=== PATIENT | male | born 1950 | race Caucasian/White ===

== ENCOUNTER 2018-04-05 18:57 | Inpatient (IN) ==
[2018-04-05] MEDS ORDERED: methylPREDNISolone SOD SUC 125 MG/2 ML VIAL IV STA (20:18)
[2018-04-05] MEDS ORDERED: SODIUM CHLORIDE 0.9% 1,000 ML IV STA (20:18)
[2018-04-05] MEDS ORDERED: ACETAMINOPHEN 500 MG TABLET PO STA (20:18)
[2018-04-05] MEDS ORDERED: ALBUTEROL/IPRATROPIUM 3 ML NEB RESP TX STA (20:18)
[2018-04-05 20:53] LABS: Basophils # 0.1 10*3/uL (0.0-0.2); Basophils % 0.2 % (0.0-0.8); Eosinophils # 0.7 10*3/uL (0.0-0.87); Hematocrit 39.4 VOL% (42.0-52.0); Hemoglobin 12.9 GM/DL (14.0-18.0); Immature Granulocytes % 11.7 %; Immature Granulocytes Absolute 2.74 #; Lymphocytes % 4.4 % (21.2-54.2); Mean Corpuscular HGB Conc 32.7 GM/DL (32-36); Mean Corpuscular Hemoglobin 31 PG (27-34); Mean Corpuscular Volume 93.4 FL (87-102); Mean Platelet Volume 10.2 FL (9.6-12.0); Monocytes # 2.2 10*3/uL (0.11-0.8); Monocytes % 9.5 % (1.7-12.7); Neutrophils # 16.6 10*3/uL (1.4-7.4); Neutrophils % 71.2 % (38.7-73.9); Platelet Count 500 T/CUMM (130-400); Red Blood Count 4.22 MC/CUMM (3.8-5.5); Red Cell Distribution Width 13.1 % (9.3-17.3); White Blood Count 23.4 T/CUMM (4-12)
[2018-04-05 21:02] LABS: PT Patient Result 10.8 SECS
[2018-04-05 21:02] LABS: Apearance,Urine Slightly Hazy (Clear); Bilirubin,Urine Negative (Negative); Blood, Urine Small mg/dL (Negative); Glucose,Urine (UA) Negative (Negative); Ketones,Urine Negative (Negative); Mucus,Urine Few /LPF (Occasional); Nitrite,Urine Negative (Negative); Protein,Urine 30 MG/DL; RBC,Urine 13 /HPF (0-4); Urine Specific Gravity 1.026 (1.001-1.035); WBC,Urine 3 /HPF (0-6)
[2018-04-05 21:03] LABS: Urine Color Dark Yellow (Yellow)
[2018-04-05 21:14] LABS: Lactic Acid 1.4 MMOL/L (0.4-2.0)
[2018-04-05 21:15] LABS: Troponin I < 0.015 NG/ML (0.00-0.045)
[2018-04-05 21:21] LABS: Albumin 1.9 G/DL (3.4-5.0); Bilirubin,Total 0.6 MG/DL (0.2-1.0); Calcium 8.7 MG/DL (8.5-10.1); Osmolality,Calculated 267.2 MOS/KG (273-304); Total Protein 7.7 G/DL (6.4-8.3)
[2018-04-05 22:04] LABS: Hepatitis A Ab IgM Quant 0.15 Index; Hepatitis A Ab IgM Result Negative (Negative); Hepatitis B Core IgM Quant 0.06 Index; Hepatitis B Core IgM Result Negative (Negative); Hepatitis B Surface Ag Quant < 0.10 Index; Hepatitis B Surface Ag Result Negative (Negative); Hepatitis C Virus Ab Quant < 0.02 Index; Hepatitis C Virus Ab Result Negative (Negative)
[2018-04-05 22:17] LABS: Sedimentation Rate-Westergren 78 MM/HR (0-20)
[2018-04-06] MEDS ORDERED: ONDANSETRON 4 MG/2 ML VIAL IV PRN (00:10)
[2018-04-06] MEDS ORDERED: MORPHINE 4 MG/1 ML VIAL IV PRN (00:47)
[2018-04-06] MEDS: SODIUM CHLORIDE 0.9% 1,000 ML IV SCH ×2 (00:57→15:17)
[2018-04-06] MEDS: DOXYCYCLINE HYCLATE 100 MG CAPSULE PO SCH ×3 (00:59→21:12)
[2018-04-06] MEDS: LATANOPROST 0.005% OPH SOLN 2.5 ML BOTTLE BOTH EYES SCH ×2 (01:00→21:12)
[2018-04-06] MEDS: ZALEPLON 5 MG CAPSULE PO PRN ×2 (01:02→21:12)
[2018-04-06 03:13] LABS: Band Neutrophils 9 % (0-10); Eosinophils 2 % (0-10); Lymphocytes 4 % (20-55); Metamyelocytes 4 %; Myelocytes 2 %; Segmented Neutrophils 69 % (50-85); Total Cells Counted 100
[2018-04-06 03:14] LABS: Platelet Estimate Increased
[2018-04-06 05:39] LABS: Basophils # 0.2 10*3/uL (0.0-0.2); Basophils % 0.9 % (0.0-0.8); Eosinophils % 0.1 % (0.00-10.9); Hematocrit 35.5 VOL% (42.0-52.0); Hemoglobin 11.5 GM/DL (14.0-18.0); Immature Granulocytes % 10.6 %; Immature Granulocytes Absolute 1.73 #; Lymphocytes # 0.6 10*3/uL (1.4-4.0); Lymphocytes % 3.4 % (21.2-54.2); Mean Corpuscular HGB Conc 32.4 GM/DL (32-36); Mean Corpuscular Hemoglobin 30 PG (27-34); Mean Corpuscular Volume 93.2 FL (87-102); Monocytes # 0.3 10*3/uL (0.11-0.8); Monocytes % 1.9 % (1.7-12.7); Neutrophils # 13.6 10*3/uL (1.4-7.4); Neutrophils % 83.1 % (38.7-73.9); Platelet Count 454 T/CUMM (130-400); Red Blood Count 3.81 MC/CUMM (3.8-5.5); Red Cell Distribution Width 13.2 % (9.3-17.3); White Blood Count 16.4 T/CUMM (4-12)
[2018-04-06 06:08] LABS: Band Neutrophils 2 % (0-10); Hypochromasia 1+; Lymphocytes 3 % (20-55); Platelet Estimate Adequate; Segmented Neutrophils 90 % (50-85); Total Cells Counted 100
[2018-04-06 06:20] LABS: Albumin 1.7 G/DL (3.4-5.0); Bilirubin,Total 0.5 MG/DL (0.2-1.0); Calcium 8.7 MG/DL (8.5-10.1); Osmolality,Calculated 277.7 MOS/KG (273-304); Potassium 4.7 MMOL/L (3.5-5.1); Total Protein 6.6 G/DL (6.4-8.3)
[2018-04-06] MEDS: LISINOPRIL 10 MG TABLET PO SCH (08:24)
[2018-04-06] MEDS: ENOXAPARIN 40 MG/0.4 ML SYRINGE SUBCUT SCH (08:24)
[2018-04-06] MEDS ORDERED: TUBERCULIN SKIN TEST 0.1 ML SYRINGE INTRADERM ONE (10:00)
[2018-04-07] MEDS: IBUPROFEN 600 MG TABLET PO PRN ×2 (01:33→15:48)
[2018-04-07 05:33] LABS: Basophils # 0.1 10*3/uL (0.0-0.2); Basophils % 0.6 % (0.0-0.8); Eosinophils # 0.5 10*3/uL (0.0-0.87); Eosinophils % 2.6 % (0.00-10.9); Hematocrit 32.3 VOL% (42.0-52.0); Hemoglobin 10.5 GM/DL (14.0-18.0); Immature Granulocytes Absolute 1.59 #; Lymphocytes # 1.5 10*3/uL (1.4-4.0); Lymphocytes % 7.7 % (21.2-54.2); Mean Corpuscular HGB Conc 32.5 GM/DL (32-36); Mean Corpuscular Hemoglobin 30 PG (27-34); Mean Corpuscular Volume 92.8 FL (87-102); Mean Platelet Volume 9.6 FL (9.6-12.0); Monocytes # 1.7 10*3/uL (0.11-0.8); Monocytes % 8.7 % (1.7-12.7); Neutrophils # 14.4 10*3/uL (1.4-7.4); Neutrophils % 72.4 % (38.7-73.9); Platelet Count 522 T/CUMM (130-400); Red Blood Count 3.48 MC/CUMM (3.8-5.5); Red Cell Distribution Width 13.2 % (9.3-17.3); White Blood Count 19.9 T/CUMM (4-12)
[2018-04-07 05:48] LABS: Albumin 1.6 G/DL (3.4-5.0); Bilirubin,Total 0.5 MG/DL (0.2-1.0); Osmolality,Calculated 276.7 MOS/KG (273-304); Potassium 4.2 MMOL/L (3.5-5.1); Total Protein 5.7 G/DL (6.4-8.3)
[2018-04-07 06:04] LABS: Band Neutrophils 1 % (0-10); Eosinophils 2 % (0-10); Hypochromasia 1+; Lymphocytes 7 % (20-55); Segmented Neutrophils 87 % (50-85); Total Cells Counted 100
[2018-04-07 06:05] LABS: Microcytosis 1+
[2018-04-07] MEDS: ENOXAPARIN 40 MG/0.4 ML SYRINGE SUBCUT SCH (08:55)
[2018-04-07] MEDS: DOXYCYCLINE HYCLATE 100 MG CAPSULE PO SCH ×2 (08:55→20:55)
[2018-04-07] MEDS: LISINOPRIL 10 MG TABLET PO SCH (08:55)
[2018-04-07] MEDS: predniSONE 20 MG TABLET PO SCH (15:54)
[2018-04-07] MEDS: SODIUM CHLORIDE 0.9% 1,000 ML IV SCH (18:17)
[2018-04-07] MEDS: ZALEPLON 5 MG CAPSULE PO PRN (20:55)
[2018-04-07] MEDS: LATANOPROST 0.005% OPH SOLN 2.5 ML BOTTLE BOTH EYES SCH (20:55)
[2018-04-08] MEDS: IBUPROFEN 600 MG TABLET PO PRN ×2 (04:08→11:58)
[2018-04-08 04:50] LABS: Basophils # 0.1 10*3/uL (0.0-0.2); Basophils % 0.6 % (0.0-0.8); Eosinophils # 0.2 10*3/uL (0.0-0.87); Eosinophils % 1.2 % (0.00-10.9); Hematocrit 33.8 VOL% (42.0-52.0); Hemoglobin 10.9 GM/DL (14.0-18.0); Immature Granulocytes % 7.6 %; Immature Granulocytes Absolute 1.57 #; Lymphocytes # 1.7 10*3/uL (1.4-4.0); Mean Corpuscular HGB Conc 32.2 GM/DL (32-36); Mean Corpuscular Hemoglobin 30 PG (27-34); Mean Corpuscular Volume 92.6 FL (87-102); Mean Platelet Volume 9.4 FL (9.6-12.0); Monocytes # 2.2 10*3/uL (0.11-0.8); Monocytes % 10.7 % (1.7-12.7); Neutrophils # 14.8 10*3/uL (1.4-7.4); Neutrophils % 71.9 % (38.7-73.9); Platelet Count 552 T/CUMM (130-400); Red Blood Count 3.65 MC/CUMM (3.8-5.5); Red Cell Distribution Width 13.1 % (9.3-17.3); White Blood Count 20.6 T/CUMM (4-12)
[2018-04-08 05:20] LABS: Albumin 1.6 G/DL (3.4-5.0); Bilirubin,Total 0.9 MG/DL (0.2-1.0); Calcium 7.9 MG/DL (8.5-10.1); Osmolality,Calculated 275.7 MOS/KG (273-304); Potassium 4.1 MMOL/L (3.5-5.1); Total Protein 5.9 G/DL (6.4-8.3)
[2018-04-08 05:23] LABS: Ferritin 420.8 ng/ml (26-388)
[2018-04-08 07:04] LABS: Eosinophils 2 % (0-10); Lymphocytes 17 % (20-55); Metamyelocytes 1 %; Platelet Estimate Increased; Segmented Neutrophils 71 % (50-85); Total Cells Counted 100
[2018-04-08 07:05] LABS: Hypochromasia Slight
[2018-04-08] MEDS: predniSONE 20 MG TABLET PO SCH (10:41)
[2018-04-08] MEDS: LISINOPRIL 10 MG TABLET PO SCH (10:41)
[2018-04-08] MEDS: ENOXAPARIN 40 MG/0.4 ML SYRINGE SUBCUT SCH (10:42)
[2018-04-08] MEDS: DOXYCYCLINE HYCLATE 100 MG CAPSULE PO SCH ×2 (10:42→21:16)
[2018-04-08] MEDS: SODIUM CHLORIDE 0.9% 1,000 ML IV SCH (10:42)
[2018-04-08] MEDS: LATANOPROST 0.005% OPH SOLN 2.5 ML BOTTLE BOTH EYES SCH (21:16)
[2018-04-09] MEDS: ZALEPLON 5 MG CAPSULE PO PRN
[2018-04-09 04:23] LABS: Basophils # 0.2 10*3/uL (0.0-0.2); Basophils % 0.7 % (0.0-0.8); Eosinophils # 0.6 10*3/uL (0.0-0.87); Eosinophils % 2.7 % (0.00-10.9); Hematocrit 32.5 VOL% (42.0-52.0); Hemoglobin 10.8 GM/DL (14.0-18.0); Immature Granulocytes % 8.8 %; Immature Granulocytes Absolute 2.05 #; Lymphocytes # 1.8 10*3/uL (1.4-4.0); Lymphocytes % 7.5 % (21.2-54.2); Mean Corpuscular HGB Conc 33.2 GM/DL (32-36); Mean Corpuscular Hemoglobin 30 PG (27-34); Mean Platelet Volume 9.5 FL (9.6-12.0); Monocytes # 2.3 10*3/uL (0.11-0.8); Neutrophils # 16.4 10*3/uL (1.4-7.4); Neutrophils % 70.3 % (38.7-73.9); Platelet Count 545 T/CUMM (130-400); Red Blood Count 3.57 MC/CUMM (3.8-5.5); Red Cell Distribution Width 13.1 % (9.3-17.3); White Blood Count 23.3 T/CUMM (4-12)
[2018-04-09 04:48] LABS: Albumin 1.6 G/DL (3.4-5.0); Bilirubin,Total 0.7 MG/DL (0.2-1.0); Calcium 8.1 MG/DL (8.5-10.1); Osmolality,Calculated 269.1 MOS/KG (273-304); Potassium 4.1 MMOL/L (3.5-5.1); Total Protein 5.8 G/DL (6.4-8.3)
[2018-04-09 05:59] LABS: Band Neutrophils 2 % (0-10); Eosinophils 3 % (0-10); Lymphocytes 4 % (20-55); Myelocytes 2 %; Segmented Neutrophils 79 % (50-85)
[2018-04-09 06:00] LABS: Total Cells Counted 100
[2018-04-09 06:01] LABS: Platelet Estimate Increased
[2018-04-09] MEDS: predniSONE 20 MG TABLET PO SCH (09:33)
[2018-04-09] MEDS: ENOXAPARIN 40 MG/0.4 ML SYRINGE SUBCUT SCH (09:33)
[2018-04-09] MEDS: IBUPROFEN 600 MG TABLET PO PRN ×3 (09:33→23:23)
[2018-04-09] MEDS: LISINOPRIL 10 MG TABLET PO SCH (09:33)
[2018-04-09] MEDS: DOXYCYCLINE HYCLATE 100 MG CAPSULE PO SCH ×2 (09:33→21:45)
[2018-04-09 13:53] LABS: Myeloperoxidase Antibody < 0.2 U
[2018-04-09 14:23] LABS: Ehrlichia Chaffeensis (HME)IgG <1:64 titer (<1:64)
[2018-04-09] MEDS: LATANOPROST 0.005% OPH SOLN 2.5 ML BOTTLE BOTH EYES SCH (21:45)
[2018-04-10 05:14] LABS: Basophils # 0.2 10*3/uL (0.0-0.2); Basophils % 0.8 % (0.0-0.8); Eosinophils # 0.8 10*3/uL (0.0-0.87); Eosinophils % 3.4 % (0.00-10.9); Hematocrit 32.8 VOL% (42.0-52.0); Hemoglobin 10.6 GM/DL (14.0-18.0); Immature Granulocytes % 10.4 %; Lymphocytes # 1.7 10*3/uL (1.4-4.0); Lymphocytes % 7.4 % (21.2-54.2); Mean Corpuscular HGB Conc 32.3 GM/DL (32-36); Mean Corpuscular Hemoglobin 30 PG (27-34); Mean Corpuscular Volume 92.4 FL (87-102); Mean Platelet Volume 9.8 FL (9.6-12.0); Monocytes % 8.9 % (1.7-12.7); Neutrophils # 15.9 10*3/uL (1.4-7.4); Neutrophils % 69.1 % (38.7-73.9); Platelet Count 560 T/CUMM (130-400); Red Blood Count 3.55 MC/CUMM (3.8-5.5); Red Cell Distribution Width 13.1 % (9.3-17.3)
[2018-04-10 05:48] LABS: Albumin 1.5 G/DL (3.4-5.0); Bilirubin,Total 0.8 MG/DL (0.2-1.0); Calcium 8.1 MG/DL (8.5-10.1); Potassium 3.9 MMOL/L (3.5-5.1)
[2018-04-10 06:26] LABS: Eosinophils 7 % (0-10); Lymphocytes 12 % (20-55); Platelet Estimate Increased; Segmented Neutrophils 75 % (50-85); Total Cells Counted 100
[2018-04-10 06:27] LABS: Atypical Lymphocytes Few
[2018-04-10] MEDS: IBUPROFEN 600 MG TABLET PO PRN ×2 (06:29→22:17)
[2018-04-10] MEDS: LISINOPRIL 10 MG TABLET PO SCH (10:34)
[2018-04-10] MEDS: predniSONE 20 MG TABLET PO SCH (10:34)
[2018-04-10] MEDS: ENOXAPARIN 40 MG/0.4 ML SYRINGE SUBCUT SCH (10:34)
[2018-04-10] MEDS: DOXYCYCLINE HYCLATE 100 MG CAPSULE PO SCH ×2 (10:34→22:17)
[2018-04-10] MEDS: LATANOPROST 0.005% OPH SOLN 2.5 ML BOTTLE BOTH EYES SCH (22:17)
[2018-04-10 23:08] LABS: Collection Time,Urine 24 HOURS; Total Protein 24 Hr Ur Result 500 MG/24HR (0-149.1); Total Volume,Urine 2500 ML (400-2000)
[2018-04-11 05:48] LABS: Basophils # 0.2 10*3/uL (0.0-0.2); Basophils % 0.7 % (0.0-0.8); Eosinophils # 0.8 10*3/uL (0.0-0.87); Eosinophils % 3.4 % (0.00-10.9); Hematocrit 33.7 VOL% (42.0-52.0); Hemoglobin 11.1 GM/DL (14.0-18.0); Immature Granulocytes % 9.2 %; Immature Granulocytes Absolute 2.06 #; Lymphocytes # 1.7 10*3/uL (1.4-4.0); Lymphocytes % 7.4 % (21.2-54.2); Mean Corpuscular HGB Conc 32.9 GM/DL (32-36); Mean Corpuscular Hemoglobin 30 PG (27-34); Mean Corpuscular Volume 91.8 FL (87-102); Mean Platelet Volume 9.8 FL (9.6-12.0); Monocytes # 2.1 10*3/uL (0.11-0.8); Monocytes % 9.5 % (1.7-12.7); Neutrophils # 15.6 10*3/uL (1.4-7.4); Neutrophils % 69.8 % (38.7-73.9); Platelet Count 555 T/CUMM (130-400); Red Blood Count 3.67 MC/CUMM (3.8-5.5); Red Cell Distribution Width 13.1 % (9.3-17.3); White Blood Count 22.3 T/CUMM (4-12)
[2018-04-11 06:12] LABS: Albumin 1.6 G/DL (3.4-5.0); Bilirubin,Total 0.9 MG/DL (0.2-1.0); Calcium 8.4 MG/DL (8.5-10.1); Potassium 4.4 MMOL/L (3.5-5.1); Total Protein 6.1 G/DL (6.4-8.3)
[2018-04-11] MEDS: ENOXAPARIN 40 MG/0.4 ML SYRINGE SUBCUT SCH (08:53)
[2018-04-11 09:35] LABS: Cryofibrinogen, P Negative (Negative)
[2018-04-11] MEDS ORDERED: PROPOFOL 200 MG/20 ML VIAL IV ONE (10:15)
[2018-04-11 10:50] LABS: Albumin (SPE) 2.3 G/DL (3.2-5.3); Albumin (SPE) Rel % 38.1 %; Alpha 1 (SPE) 0.4 G/DL (0.1-0.4); Alpha 1 (SPE) Rel % 6.8 %; Alpha 2 (SPE) Rel % 16.6 %; Beta (SPE) 0.8 G/DL (0.5-1.1); Beta (SPE) Rel % 13.8 %; Gamma (SPE) 1.5 G/DL (0.7-1.7); Gamma (SPE) Rel % 24.7 %
[2018-04-11] MEDS: LISINOPRIL 10 MG TABLET PO SCH (10:54)
[2018-04-11 10:56] LABS: 24 Hr Protein (Bench) 500 MG/24HR (0-149.1)
[2018-04-11] MEDS: DOXYCYCLINE HYCLATE 100 MG CAPSULE PO SCH ×2 (11:17→21:22)
[2018-04-11] MEDS: predniSONE 20 MG TABLET PO SCH (11:17)
[2018-04-11] MEDS: IBUPROFEN 600 MG TABLET PO PRN (11:17)
[2018-04-11 11:25] LABS: Band Neutrophils 2 % (0-10); Eosinophils 4 % (0-10); Lymphocytes 7 % (20-55); Polychromasia Slight; Segmented Neutrophils 81 % (50-85); Total Cells Counted 100
[2018-04-11 11:26] LABS: Hypochromasia Slight; Platelet Estimate Increased
[2018-04-11] MEDS ORDERED: TUBERCULIN SKIN TEST 0.1 ML SYRINGE INTRADERM ONE (16:01)
[2018-04-11] MEDS: LATANOPROST 0.005% OPH SOLN 2.5 ML BOTTLE BOTH EYES SCH (21:22)
[2018-04-12] MEDS: IBUPROFEN 600 MG TABLET PO PRN ×3 (01:20→19:52)
[2018-04-12] MEDS: ZALEPLON 5 MG CAPSULE PO PRN ×2 (02:19→21:12)
[2018-04-12 05:26] LABS: Basophils # 0.1 10*3/uL (0.0-0.2); Basophils % 0.6 % (0.0-0.8); Eosinophils # 0.6 10*3/uL (0.0-0.87); Eosinophils % 3.1 % (0.00-10.9); Hematocrit 31.9 VOL% (42.0-52.0); Hemoglobin 10.3 GM/DL (14.0-18.0); Immature Granulocytes Absolute 1.65 #; Lymphocytes # 1.8 10*3/uL (1.4-4.0); Lymphocytes % 8.7 % (21.2-54.2); Mean Corpuscular HGB Conc 32.3 GM/DL (32-36); Mean Corpuscular Hemoglobin 30 PG (27-34); Mean Corpuscular Volume 91.7 FL (87-102); Mean Platelet Volume 9.6 FL (9.6-12.0); Monocytes % 9.5 % (1.7-12.7); Neutrophils # 14.4 10*3/uL (1.4-7.4); Neutrophils % 70.1 % (38.7-73.9); Platelet Count 585 T/CUMM (130-400); Red Blood Count 3.48 MC/CUMM (3.8-5.5); Red Cell Distribution Width 13.2 % (9.3-17.3); White Blood Count 20.6 T/CUMM (4-12)
[2018-04-12 05:59] LABS: Albumin 1.6 G/DL (3.4-5.0); Bilirubin,Total 0.7 MG/DL (0.2-1.0); Calcium 8.1 MG/DL (8.5-10.1); Osmolality,Calculated 274.8 MOS/KG (273-304); Potassium 3.9 MMOL/L (3.5-5.1); Total Protein 5.9 G/DL (6.4-8.3)
[2018-04-12 06:22] LABS: Eosinophils 5 % (0-10); Lymphocytes 13 % (20-55); Platelet Estimate Normal; Polychromasia Few; Segmented Neutrophils 79 % (50-85); Total Cells Counted 100
[2018-04-12] MEDS: LISINOPRIL 10 MG TABLET PO SCH (10:55)
[2018-04-12] MEDS: ENOXAPARIN 40 MG/0.4 ML SYRINGE SUBCUT SCH (10:55)
[2018-04-12] MEDS: DOXYCYCLINE HYCLATE 100 MG CAPSULE PO SCH ×2 (10:55→21:12)
[2018-04-12] MEDS: LATANOPROST 0.005% OPH SOLN 2.5 ML BOTTLE BOTH EYES SCH (21:12)
[2018-04-13] MEDS: IBUPROFEN 600 MG TABLET PO PRN (04:36)
[2018-04-13 06:14] LABS: Calcium 8.2 MG/DL (8.5-10.1); Osmolality,Calculated 265.5 MOS/KG (273-304); Potassium 4.3 MMOL/L (3.5-5.1)
[2018-04-13] MEDS: DOXYCYCLINE HYCLATE 100 MG CAPSULE PO SCH (08:30)
[2018-04-13] MEDS: LISINOPRIL 10 MG TABLET PO SCH (08:31)
[2018-04-13] MEDS: ENOXAPARIN 40 MG/0.4 ML SYRINGE SUBCUT SCH (08:31)
[2018-04-13 11:51] VITALS: BP 100/51
[2018-04-14 19:30] LABS: Anaplasma phagocytophilum Negative (Negative); Ehrlichia Chaffeensis (HME)IgG <1:64 titer (<1:64); Ehrlichia chaffeensis Negative (Negative); Ehrlichia ewingii/canis Negative (Negative)
== END 2018-04-13 11:40 | disposition home or self-care (01) | DRG 864 ==
LOC: N.EDINP 18:57 → N.ED 18:57 → N.2E 04-06 00:21 → SUATTDRO 04-06 09:36 → N.2E 04-07 12:22
PROVIDERS: ADMIT Internal Medicine; ATTEND Family Medicine